=== PATIENT | male | born 1945 | race Hispanic/Latino ===

== ENCOUNTER 2017-11-01 01:29 | Inpatient (IN) | payer OTHER ==
[2017-11-01] VITALS (17 sets, daily range): BP systolic 79–161; BP diastolic 42–81
[~2017-11-01] VITALS: Ht 154.9 cm; Wt 73.3 kg
[~2017-11-01 01:29] MED LIST: ASPI-1005 PO; CLOP75TA32 PO; FURO40TA5 PO; HUM10VIA SQ; HYDR-4154 PO; LOSA100T29 PO; METO200T49 PO; SIMV40TA59 PO
[2017-11-01 02:45] LABS: BASOPHILS % (AUTO) 0.3 % (0.0-5.0); EOSINOPHILS % (AUTO) 0.8 % (0.0-8.0); HEMATOCRIT 22.3 % (42-54); LYMPHOCYTES % (AUTO) 10.8 % (21.0-51.0); MEAN CORPUSCULAR HGB CONC 33.3 g/dL (32.0-36.0); MONOCYTES % (AUTO) 8.9 % (3.0-13.0); NEUTROPHILS % (AUTO) 79.2 % (40.0-77.0); PLATELET COUNT (AUTO) 99 K/uL (130-400); RED CELL DISTRIBUTION WIDTH 14.3 % (11.0-15.5); WHITE BLOOD COUNT (AUTO) 10.7 K/uL (4.8-10.8)
[2017-11-01 02:46] LABS: CREATININE 3.8 mg/dL (0.5-1.5)
[2017-11-01 02:53] LABS: ALBUMIN 3.1 g/dL (3.5-5.0); BILIRUBIN,TOTAL 0.5 mg/dL (0.2-1.0)
[2017-11-01 02:57] LABS: APPEARANCE,URINE Cloudy (CLEAR); BILIRUBIN,URINE Negative (NEGATIVE); COLOR,URINE Yellow (YELLOW); GLUCOSE, URINE (UA) Negative (NEGATIVE); KETONES,URINE Negative (NEGATIVE); LEUKOCYTE ESTERASE ,URINE Large (NEGATIVE); NITRATE,URINE Negative (NEGATIVE); OCCULT BLOOD,URINE Negative (NEGATIVE); PROTEIN,URINE 300 (NEGATIVE)
[2017-11-01 03:15] LABS: BACTERIA,URINE Many /HPF (None Seen); RBC,URINE None Seen /HPF (0-1); SQUAMOUS EPITHELIAL CELL,UR Few /LPF (0-2); WBC,URINE 26-50 /HPF (0-1)
[2017-11-01] MEDS ORDERED: BISACODYL 10 MG SUPP.RECT RC ONE (04:29)
[2017-11-01] MEDS ORDERED: SODIUM CHLORIDE 0.9% 50 ML IV ONE (06:25)
[2017-11-01] MEDS ORDERED: CEFTRIAXONE SODIUM 1 GM ONE ×2 (06:25→09:03)
[2017-11-01] MEDS ORDERED: DEXTROSE 50%-WATER 50 ML DISP.SYRIN IV PRN (07:15)
[2017-11-01] MEDS ORDERED: LIDOCAINE HCL-MPF 1% 2ML VIAL IJ PRN (07:15)
[2017-11-01] MEDS ORDERED: CEFTRIAXONE SODIUM 1 GM IVP SCH (07:15)
[2017-11-01] MEDS ORDERED: GLUCAGON 1MG KIT 1 MG ML IM PRN (07:15)
[2017-11-01] MEDS ORDERED: POTASSIUM CHLORIDE 20MEQ/100ML 100 ML IV PRN (07:15)
[2017-11-01] MEDS ORDERED: ACETAMINOPHEN 325 MG TAB PO PRN ×2 (07:15)
[2017-11-01] MEDS ORDERED: DIPHENHYDRAMINE HCL 25 MG CAPSULE PO PRN (07:15)
[2017-11-01] MEDS ORDERED: POTASSIUM CHLORIDE 10% ELIXIR 20 MEQ/15 ML UDCUP PO PRN (07:15)
[2017-11-01] MEDS ORDERED: GUAIFENESIN-DM 200/20 MG 10 ML PO PRN (07:15)
[2017-11-01] MEDS ORDERED: MAG HYDROX/AL HYDROX/SIMETH ES 30 ML SUSP UDCUP PO PRN (07:15)
[2017-11-01] MEDS ORDERED: DiphenhydrAMINE HCL 50 MG/ML VIAL IVP PRN (07:15)
[2017-11-01] MEDS ORDERED: LACTULOSE 20 GM/30 ML UDCUP PO PRN (07:15)
[2017-11-01] MEDS ORDERED: GUAIFENESIN SUGAR-FREE 100 MG/5 ML UDCUP PO PRN (07:15)
[2017-11-01] MEDS ORDERED: POTASSIUM CHLORIDE 20 MEQ ERTAB PO PRN (07:15)
[2017-11-01] MEDS ORDERED: ZOLPIDEM TARTRATE 5 MG TAB PO PRN (07:15)
[2017-11-01] MEDS ORDERED: CLONIDINE HCL 0.1 MG TABLET PO PRN (07:15)
[2017-11-01] MEDS ORDERED: NITROGLYCERIN 0.4 MG SL TAB SL PRN (07:15)
[2017-11-01] MEDS: INSULIN R PO SSI SQ SCH ×2 (07:30→16:37)
[2017-11-01] MEDS ORDERED: PANTOPRAZOLE SODIUM 40 MG TABLET.DR PO SCH (09:00)
[2017-11-01] MEDS ORDERED: PANTOPRAZOLE SODIUM 40 MG TABLET.DR PO ONE (09:03)
[2017-11-01] MEDS ORDERED: SODIUM CHLORIDE 0.9% 1000ML 1,000 ML IV SCH (09:45)
[2017-11-01] MEDS ORDERED: COMPOUND IV MISC 1 EACH IVSOLN MISC PRN (10:00)
[2017-11-01] MEDS ORDERED: IRON SUCROSE COMPLEX 100 MG in SODIUM CHLORIDE 0.9% 50 ML IV SCH (10:00)
[2017-11-01] MEDS ORDERED: FOLI1TAB15 PO (10:13)
[2017-11-01] MEDS ORDERED: OXYB5TAB PO (10:13)
[2017-11-01] MEDS ORDERED: AMLO10TA2 PO (10:13)
[2017-11-01] MEDS ORDERED: INS7030 SQ (10:56)
[2017-11-01] MEDS ORDERED: SUCCINYLCHOLINE CHLORIDE 20 MG/ML 10 ML VIAL IVP ONE (12:00)
[2017-11-01] MEDS ORDERED: EPINEPHRINE 0.1 MG/ML 10 ML SYG IVP ONE (12:00)
[2017-11-01] MEDS ORDERED: ETOMIDATE 2 MG/ML 10 ML VIAL IVP ONE (12:00)
[2017-11-01] MEDS: EPOETIN ALFA 10,000 UNIT/ML VIAL SQ SCH (14:13)
[2017-11-01] MEDS ORDERED: SODIUM CHLORIDE 0.9% 250 ML IV ONE (15:45)
[2017-11-01] MEDS ORDERED: FUROSEMIDE 10 MG/ML 4ML VIAL IV SCH (18:00)
[2017-11-01] MEDS ORDERED: PROPOFOL 1000 MG/100 ML 100 ML IV ONE (18:06)
[2017-11-01 18:12] LABS: HEMATOCRIT 25.3 % (42-54); MEAN CORPUSCULAR HEMOGLOBIN 30.8 pg (27.0-33.0); MEAN CORPUSCULAR HGB CONC 32.6 g/dL (32.0-36.0); MEAN CORPUSCULAR VOLUME 94.6 fL (79-99); PLATELET COUNT (AUTO) 185 K/uL (130-400); RED BLOOD CELL COUNT(AUTO) 2.68 MIL/uL (4.50-6.20); RED CELL DISTRIBUTION WIDTH 14.3 % (11.0-15.5); WHITE BLOOD COUNT (AUTO) 18.2 K/uL (4.8-10.8)
[2017-11-01 18:20] LABS: CREATININE 4.3 mg/dL (0.5-1.5); POTASSIUM 3.6 mmol/L (3.5-5.1)
[2017-11-01] MEDS ORDERED: CEFEPIME 1GM+NS 50ML 50 ML IV SCH (18:30)
[2017-11-01] MEDS ORDERED: HYDRALAZINE HCL 20 MG/ML VIAL IV PRN (18:30)
[2017-11-01] MEDS ORDERED: PROPOFOL 1000 MG/100 ML IV PRN (18:45)
[2017-11-01] MEDS ORDERED: NOREPINEPHRINE 4MG/NS 250ML 250 ML IV SCH (19:30)
[2017-11-01] MEDS: IPRATROPIUM/ALBUTEROL SULFATE 3 ML SOLUTION IH SCH ×2 (19:51→22:38)
[2017-11-01 20:00] LABS: ABG BASE EXCESS -7.1 mmol/L (-2.0-3.0); ABG HCO3 17.8 mmol/L (21.0-28.0); ABG OXYGEN SATURATION 93.3 % (95.0-99.0); ABG PCO2 35 mmHg (35-48)
[2017-11-01] MEDS ORDERED: SODIUM BICARB 50MEQ 50ML VIAL IV SCH (20:22)
[2017-11-01] MEDS ORDERED: INSULIN HUMULIN R 100 UNIT/ML 3ML SQ SCH (21:00)
[2017-11-01] MEDS ORDERED: SODIUM BICARB 50MEQ 50ML VIAL ONE (21:04)
[2017-11-01] MEDS: MIDAZOLAM 100MG-0.9% NS 100ML 100 ML IV PRN (21:14)
[2017-11-01] MEDS: FENTANYL 2500MCG+NS 250ML 250 ML IV PRN (21:14)
[2017-11-01] MEDS: OSELTAMIVIR PHOSPHATE 75 MG CAP PO SCH (21:15)
[2017-11-01] MEDS: ARTIFICAL TEARS SOL 15 ML OU SCH (21:15)
[2017-11-01] MEDS: DOXYCYCLINE HYCLATE 100 MG TABLET PO SCH (21:15)
[2017-11-01] MEDS: FUROSEMIDE 10 MG/ML 4ML VIAL IV SCH (21:16)
[2017-11-01] MEDS: CEFEPIME HCL 1 GM VIAL IVP SCH (21:23)
[2017-11-01 21:56] LABS: APPEARANCE,URINE TURBID (CLEAR); BILIRUBIN,URINE SMALL (NEGATIVE); COLOR,URINE BROWN (YELLOW); GLUCOSE, URINE (UA) NEGATIVE (NEGATIVE); KETONES,URINE NEGATIVE (NEGATIVE); LEUKOCYTE ESTERASE ,URINE SMALL (NEGATIVE); NITRATE,URINE NEGATIVE (NEGATIVE); OCCULT BLOOD,URINE LARGE (NEGATIVE); PROTEIN,URINE >=300 (NEGATIVE)
[2017-11-01 22:06] LABS: BACTERIA,URINE Moderate /HPF (None Seen); RBC,URINE >100 /HPF (0-1)
[2017-11-01 22:07] LABS: SQUAMOUS EPITHELIAL CELL,UR Rare /LPF (0-2)
[2017-11-02] VITALS (25 sets, daily range): BP systolic 104–137; BP diastolic 42–68
[2017-11-02] MEDS: ARTIFICAL TEARS SOL 15 ML OU SCH ×4 (00:31→18:29)
[2017-11-02] MEDS ORDERED: INSULIN HUMULIN R 100 UNIT/ML 3ML ONE (00:33)
[2017-11-02] MEDS: IPRATROPIUM/ALBUTEROL SULFATE 3 ML SOLUTION IH SCH ×6 (02:11→22:46)
[2017-11-02 03:37] LABS: ABG BASE EXCESS 0.9 mmol/L (-2.0-3.0); ABG HCO3 24.4 mmol/L (21.0-28.0); ABG OXYGEN SATURATION 94.9 % (95.0-99.0); ABG PCO2 36 mmHg (35-48)
[2017-11-02 04:23] LABS: HEMATOCRIT 23.3 % (42-54); MEAN CORPUSCULAR HEMOGLOBIN 30.8 pg (27.0-33.0); MEAN CORPUSCULAR HGB CONC 33.5 g/dL (32.0-36.0); PLATELET COUNT (AUTO) 88 K/uL (130-400); RED BLOOD CELL COUNT(AUTO) 2.53 MIL/uL (4.50-6.20); RED CELL DISTRIBUTION WIDTH 14.2 % (11.0-15.5); WHITE BLOOD COUNT (AUTO) 12.9 K/uL (4.8-10.8)
[2017-11-02 04:35] LABS: BAND NEUTROPHILS % (MANUAL) 10 % (0-2); LYMPHOCYTES % (MANUAL) 7 % (22-44); MONOCYTES % (MANUAL) 2 % (2-9); REACTIVE LYMPHOCYTES 1 % (0-0); SEGMENTED NEUTROPHILS % 80 % (40-70)
[2017-11-02 04:36] LABS: MAN.DIFF COMMENT-IMPRESSION MANUAL DIF; PLATELET MORPHOLOGY COMMENT SLIGHTLY DECREASED
[2017-11-02 04:39] LABS: ALBUMIN 2.6 g/dL (3.5-5.0); BILIRUBIN,TOTAL 0.5 mg/dL (0.2-1.0); CREATININE 4.3 mg/dL (0.5-1.5); PHOSPHORUS 5.5 mg/dL (2.5-4.9); POTASSIUM 3.4 mmol/L (3.5-5.1); THYROID STIMULATING HORMONE 2.39 uIU/mL (0.36-3.74); TOTAL PROTEIN, SERUM 6.7 g/dL (6.0-8.3)
[2017-11-02] MEDS: INSULIN HUMULIN R 100 UNIT/ML 3ML SQ SCH ×3 (06:34→18:00)
[2017-11-02] MEDS: FUROSEMIDE 10 MG/ML 4ML VIAL IV SCH (08:29)
[2017-11-02] MEDS: FAMOTIDINE 20MG TAB 20 MG TAB PO SCH (08:29)
[2017-11-02] MEDS: OSELTAMIVIR PHOSPHATE 75 MG CAP PO SCH (08:29)
[2017-11-02] MEDS: TAMSULOSIN HCL 0.4 MG CAP.ER.24H PO SCH (08:30)
[2017-11-02] MEDS: EPOETIN ALFA 10,000 UNIT/ML VIAL SQ SCH (08:31)
[2017-11-02] MEDS: DOXYCYCLINE HYCLATE 100 MG TABLET PO SCH ×2 (08:42→19:43)
[2017-11-02] MEDS ORDERED: METOLAZONE 2.5 MG TABLET PO SCH (17:30)
[2017-11-02] MEDS: FUROSEMIDE 100 MG in SODIUM CHLORIDE 0.9% 90 ML IV SCH (18:28)
[2017-11-02] MEDS: CEFEPIME HCL 1 GM VIAL IVP SCH (18:29)
[2017-11-02] MEDS: HEPARIN SODIUM 5000UNIT/ML 1ML VIAL SQ SCH (18:35)
[2017-11-02] MEDS: MIDAZOLAM 100MG-0.9% NS 100ML 100 ML IV PRN (22:01)
[2017-11-03] VITALS (23 sets, daily range): BP systolic 95–125; BP diastolic 39–57
[2017-11-03] MEDS: INSULIN HUMULIN R 100 UNIT/ML 3ML SQ SCH ×4 (00:41→18:14)
[2017-11-03] MEDS: ARTIFICAL TEARS SOL 15 ML OU SCH ×5 (01:03→23:40)
[2017-11-03] MEDS: FENTANYL 2500MCG+NS 250ML 250 ML IV PRN (01:40)
[2017-11-03] MEDS: IPRATROPIUM/ALBUTEROL SULFATE 3 ML SOLUTION IH SCH ×6 (02:37→22:38)
[2017-11-03 03:36] LABS: ABG BASE EXCESS 2.8 mmol/L (-2.0-3.0); ABG HCO3 26.4 mmol/L (21.0-28.0); ABG OXYGEN SATURATION 99.4 % (95.0-99.0); ABG PCO2 37 mmHg (35-48)
[2017-11-03] MEDS: FUROSEMIDE 100 MG in SODIUM CHLORIDE 0.9% 90 ML IV SCH ×2 (03:43→14:40)
[2017-11-03 04:07] LABS: MEAN CORPUSCULAR HEMOGLOBIN 32.3 pg (27.0-33.0); MEAN CORPUSCULAR HGB CONC 34.8 g/dL (32.0-36.0); MEAN CORPUSCULAR VOLUME 92.9 fL (79-99); NUCLEATED RED BLOOD CELLS 0.1 % (0.0-0.19); PLATELET COUNT (AUTO) 67 K/uL (130-400); RED BLOOD CELL COUNT(AUTO) 2.23 MIL/uL (4.50-6.20); RED CELL DISTRIBUTION WIDTH 14.2 % (11.0-15.5); WHITE BLOOD COUNT (AUTO) 6.7 K/uL (4.8-10.8)
[2017-11-03 04:10] LABS: HEMATOCRIT 20.7 % (42-54)
[2017-11-03 04:16] LABS: INR 1.02 (0.85-1.15); PARTIAL THROMBOPLASTIN TIME 35.5 SEC (26.3-35.5); PROTHROMBIN TIME 10.7 SEC (9.6-11.6)
[2017-11-03 04:22] LABS: CREATININE 4.3 mg/dL (0.5-1.5); MAGNESIUM 1.9 mg/dL (1.80-2.40); PHOSPHORUS 4.6 mg/dL (2.5-4.9); POTASSIUM 3.1 mmol/L (3.5-5.1)
[2017-11-03] MEDS: HEPARIN SODIUM 5000UNIT/ML 1ML VIAL SQ SCH ×2 (05:18→17:23)
[2017-11-03] MEDS: TAMSULOSIN HCL 0.4 MG CAP.ER.24H PO SCH (08:27)
[2017-11-03] MEDS: FAMOTIDINE 20MG TAB 20 MG TAB PO SCH (08:27)
[2017-11-03] MEDS: OSELTAMIVIR PHOSPHATE 75 MG CAP PO SCH (08:27)
[2017-11-03] MEDS ORDERED: POTASSIUM CHLORIDE 20 MEQ/100 ML BAG IV SCH (09:00)
[2017-11-03] MEDS: DOXYCYCLINE 100MG+NS 250ML 250 ML IV SCH ×2 (11:01→20:44)
[2017-11-03] MEDS: POTASSIUM CHLORIDE 20MEQ/100ML 100 ML IV SCH (11:02)
[2017-11-03] MEDS: CEFEPIME HCL 1 GM VIAL IVP SCH (18:15)
[2017-11-04] VITALS (33 sets, daily range): BP systolic 89–134; BP diastolic 42–65
[2017-11-04] MEDS: INSULIN HUMULIN R 100 UNIT/ML 3ML SQ SCH ×5 (00:11→23:36)
[2017-11-04] MEDS: FUROSEMIDE 100 MG in SODIUM CHLORIDE 0.9% 90 ML IV SCH (00:12)
[2017-11-04] MEDS: IPRATROPIUM/ALBUTEROL SULFATE 3 ML SOLUTION IH SCH ×6 (02:28→22:21)
[2017-11-04 04:02] LABS: BASOPHILS % (AUTO) 0.3 % (0.0-5.0); EOSINOPHILS % (AUTO) 0.9 % (0.0-8.0); LYMPHOCYTES % (AUTO) 8.3 % (21.0-51.0); MEAN CORPUSCULAR HEMOGLOBIN 31.2 pg (27.0-33.0); MEAN CORPUSCULAR HGB CONC 33.7 g/dL (32.0-36.0); MEAN CORPUSCULAR VOLUME 92.5 fL (79-99); MONOCYTES % (AUTO) 14.3 % (3.0-13.0); NEUTROPHILS % (AUTO) 76.2 % (40.0-77.0); NUCLEATED RED BLOOD CELLS 0.2 % (0.0-0.19); PLATELET COUNT (AUTO) 63 K/uL (130-400); RED BLOOD CELL COUNT(AUTO) 2.08 MIL/uL (4.50-6.20); RED CELL DISTRIBUTION WIDTH 13.9 % (11.0-15.5); WHITE BLOOD COUNT (AUTO) 4.7 K/uL (4.8-10.8)
[2017-11-04 04:08] LABS: HEMATOCRIT 19.3 % (42-54)
[2017-11-04 04:19] LABS: BILIRUBIN,TOTAL 0.9 mg/dL (0.2-1.0); CREATININE 4.6 mg/dL (0.5-1.5); POTASSIUM 3.4 mmol/L (3.5-5.1)
[2017-11-04] MEDS: HEPARIN SODIUM 5000UNIT/ML 1ML VIAL SQ SCH (05:43)
[2017-11-04] MEDS: ARTIFICAL TEARS SOL 15 ML OU SCH ×3 (06:13→20:15)
[2017-11-04 07:46] LABS: MAGNESIUM 1.8 mg/dL (1.80-2.40); PHOSPHORUS 4.1 mg/dL (2.5-4.9)
[2017-11-04] MEDS: POTASSIUM CHLORIDE 20MEQ/100ML 100 ML IV SCH (09:15)
[2017-11-04 10:07] LABS: INR 1.02 (0.85-1.15); PARTIAL THROMBOPLASTIN TIME 40.4 SEC (26.3-35.5); PROTHROMBIN TIME 10.7 SEC (9.6-11.6)
[2017-11-04] MEDS: OSELTAMIVIR PHOSPHATE 75 MG CAP PO SCH (10:36)
[2017-11-04] MEDS: FAMOTIDINE 20MG TAB 20 MG TAB PO SCH (10:36)
[2017-11-04] MEDS: DOXYCYCLINE 100MG+NS 250ML 250 ML IV SCH ×2 (10:36→21:17)
[2017-11-04] MEDS: TAMSULOSIN HCL 0.4 MG CAP.ER.24H PO SCH (10:36)
[2017-11-04] MEDS ORDERED: 0.9% SODIUM CHLORIDE 250 ML IV BAG IV PRN (13:00)
[2017-11-04] MEDS ORDERED: HEPARIN SODIUM 5000UNIT/ML 1ML VIAL IJ PRN (13:00)
[2017-11-04] MEDS ORDERED: SODIUM CHLORIDE 0.9% 1000ML 1,000 ML IV PRN (13:00)
[2017-11-04] MEDS ORDERED: ALBUMIN (HUMAN) 25% 100 ML IV PRN (13:00)
[2017-11-04 13:06] LABS: HEMATOCRIT 18.9 % (42-54)
[2017-11-04 13:20] LABS: ALBUMIN 2.1 g/dL (3.5-5.0)
[2017-11-04 13:23] LABS: % IRON SATURATION 8.2 % (30-44)
[2017-11-04 13:29] LABS: HEMOGLOBIN A1C 9.3 % (4.0-6.0)
[2017-11-04] MEDS: MIDAZOLAM 100MG-0.9% NS 100ML 100 ML IV PRN (15:42)
[2017-11-04] MEDS: CEFEPIME HCL 1 GM VIAL IVP SCH (18:25)
[2017-11-04] MEDS: FENTANYL 2500MCG+NS 250ML 250 ML IV PRN (19:00)
[2017-11-05] VITALS (24 sets, daily range): BP systolic 96–147; BP diastolic 35–78
[2017-11-05] MEDS: ARTIFICAL TEARS SOL 15 ML OU SCH ×4 (00:35→19:14)
[2017-11-05] MEDS: IPRATROPIUM/ALBUTEROL SULFATE 3 ML SOLUTION IH SCH ×6 (02:07→22:02)
[2017-11-05 03:48] LABS: MEAN CORPUSCULAR HEMOGLOBIN 32.1 pg (27.0-33.0); MEAN CORPUSCULAR HGB CONC 34.5 g/dL (32.0-36.0); MEAN CORPUSCULAR VOLUME 92.8 fL (79-99); NUCLEATED RED BLOOD CELLS 0.1 % (0.0-0.19); PLATELET COUNT (AUTO) 108 K/uL (130-400); RED BLOOD CELL COUNT(AUTO) 2.22 MIL/uL (4.50-6.20); RED CELL DISTRIBUTION WIDTH 14.4 % (11.0-15.5); WHITE BLOOD COUNT (AUTO) 2.6 K/uL (4.8-10.8)
[2017-11-05 03:53] LABS: HEMATOCRIT 20.6 % (42-54)
[2017-11-05 04:09] LABS: CREATININE 4.2 mg/dL (0.5-1.5); MAGNESIUM 1.9 mg/dL (1.80-2.40); PHOSPHORUS 4.2 mg/dL (2.5-4.9)
[2017-11-05 04:11] LABS: POTASSIUM 2.6 mmol/L (3.5-5.1)
[2017-11-05] MEDS ORDERED: POTASSIUM CHLORIDE 20MEQ/100ML 100 ML IV ONE (04:15)
[2017-11-05] MEDS: MIDAZOLAM 100MG-0.9% NS 100ML 100 ML IV PRN (04:33)
[2017-11-05 05:13] LABS: BAND NEUTROPHILS % (MANUAL) 26 % (0-2); BASOPHILS % (MANUAL) 1 % (0-2); EOSINOPHILS % (MANUAL) 8 % (1-6); LYMPHOCYTES % (MANUAL) 11 % (22-44); MAN.DIFF COMMENT-IMPRESSION MANUAL DIFFERENTIAL; METAMYELOCYTES % 3 % (0-0); MONOCYTES % (MANUAL) 8 % (2-9); SEGMENTED NEUTROPHILS % 43 % (40-70)
[2017-11-05] MEDS: INSULIN HUMULIN R 100 UNIT/ML 3ML SQ SCH ×3 (05:21→19:12)
[2017-11-05 06:15] LABS: ABG BASE EXCESS 3.5 mmol/L (-2.0-3.0); ABG HCO3 26.4 mmol/L (21.0-28.0); ABG OXYGEN SATURATION 98.9 % (95.0-99.0); ABG PCO2 35 mmHg (35-48)
[2017-11-05 07:26] LABS: HEPATITIS Bs ANTIGEN SCREEN P Negative (Negative)
[2017-11-05] MEDS: TAMSULOSIN HCL 0.4 MG CAP.ER.24H PO SCH (09:41)
[2017-11-05] MEDS: FAMOTIDINE 20MG TAB 20 MG TAB PO SCH (09:41)
[2017-11-05] MEDS: OSELTAMIVIR PHOSPHATE 75 MG CAP PO SCH (09:41)
[2017-11-05] MEDS: DOXYCYCLINE 100MG+NS 250ML 250 ML IV SCH ×2 (09:41→21:18)
[2017-11-05] MEDS: CEFEPIME HCL 1 GM VIAL IVP SCH (19:14)
[2017-11-06] VITALS (24 sets, daily range): BP systolic 107–153; BP diastolic 53–98
[2017-11-06] MEDS: ARTIFICAL TEARS SOL 15 ML OU SCH ×4 (00:12→17:23)
[2017-11-06] MEDS: IPRATROPIUM/ALBUTEROL SULFATE 3 ML SOLUTION IH SCH ×7 (00:13→22:15)
[2017-11-06] MEDS: INSULIN HUMULIN R 100 UNIT/ML 3ML SQ SCH ×4 (00:16→17:44)
[2017-11-06 04:00] LABS: BASOPHILS % (AUTO) 0.2 % (0.0-5.0); EOSINOPHILS % (AUTO) 3.9 % (0.0-8.0); HEMATOCRIT 27.7 % (42-54); LYMPHOCYTES % (AUTO) 8.1 % (21.0-51.0); MEAN CORPUSCULAR HEMOGLOBIN 29.9 pg (27.0-33.0); MEAN CORPUSCULAR HGB CONC 34.1 g/dL (32.0-36.0); MEAN CORPUSCULAR VOLUME 87.7 fL (79-99); NEUTROPHILS % (AUTO) 78.8 % (40.0-77.0); NUCLEATED RED BLOOD CELLS 0.2 % (0.0-0.19); PLATELET COUNT (AUTO) 49 K/uL (130-400); RED BLOOD CELL COUNT(AUTO) 3.15 MIL/uL (4.50-6.20); RED CELL DISTRIBUTION WIDTH 17.1 % (11.0-15.5); WHITE BLOOD COUNT (AUTO) 5.8 K/uL (4.8-10.8)
[2017-11-06 04:12] LABS: POTASSIUM 2.8 mmol/L (3.5-5.1)
[2017-11-06] MEDS: DOXYCYCLINE 100MG+NS 250ML 250 ML IV SCH ×2 (08:15→21:32)
[2017-11-06] MEDS: OSELTAMIVIR PHOSPHATE 75 MG CAP PO SCH (08:15)
[2017-11-06] MEDS: TAMSULOSIN HCL 0.4 MG CAP.ER.24H PO SCH (08:15)
[2017-11-06] MEDS: FAMOTIDINE 20MG TAB 20 MG TAB PO SCH (08:15)
[2017-11-06] MEDS ORDERED: POTASSIUM CHLORIDE 20MEQ/100ML 100 ML IV ONE (09:30)
[2017-11-06] MEDS: CEFEPIME HCL 1 GM VIAL IVP SCH (17:22)
[2017-11-06] MEDS: PROPOFOL 1000 MG/100 ML IV PRN (21:33)
[2017-11-07] VITALS (24 sets, daily range): BP systolic 106–162; BP diastolic 43–73
[2017-11-07] MEDS: INSULIN HUMULIN R 100 UNIT/ML 3ML SQ SCH ×4 (00:10→17:58)
[2017-11-07] MEDS: ARTIFICAL TEARS SOL 15 ML OU SCH ×5 (00:11→23:55)
[2017-11-07] MEDS: IPRATROPIUM/ALBUTEROL SULFATE 3 ML SOLUTION IH SCH ×6 (02:36→22:27)
[2017-11-07 04:24] LABS: BASOPHILS % (AUTO) 0.8 % (0.0-5.0); EOSINOPHILS % (AUTO) 2.6 % (0.0-8.0); HEMATOCRIT 26.2 % (42-54); LYMPHOCYTES % (AUTO) 12.3 % (21.0-51.0); MEAN CORPUSCULAR HEMOGLOBIN 31.4 pg (27.0-33.0); MEAN CORPUSCULAR HGB CONC 34.9 g/dL (32.0-36.0); MEAN CORPUSCULAR VOLUME 89.8 fL (79-99); MONOCYTES % (AUTO) 9.5 % (3.0-13.0); NEUTROPHILS % (AUTO) 74.8 % (40.0-77.0); NUCLEATED RED BLOOD CELLS 0.5 % (0.0-0.19); PLATELET COUNT (AUTO) 20 K/uL (130-400); RED BLOOD CELL COUNT(AUTO) 2.91 MIL/uL (4.50-6.20); RED CELL DISTRIBUTION WIDTH 17.1 % (11.0-15.5); WHITE BLOOD COUNT (AUTO) 10.2 K/uL (4.8-10.8)
[2017-11-07 04:38] LABS: ALBUMIN 1.9 g/dL (3.5-5.0); BILIRUBIN,TOTAL 0.7 mg/dL (0.2-1.0); CREATININE 2.9 mg/dL (0.5-1.5); TOTAL PROTEIN, SERUM 6.3 g/dL (6.0-8.3)
[2017-11-07 05:02] LABS: POTASSIUM 2.7 mmol/L (3.5-5.1)
[2017-11-07] MEDS: FAMOTIDINE 20MG TAB 20 MG TAB PO SCH (09:39)
[2017-11-07] MEDS: TAMSULOSIN HCL 0.4 MG CAP.ER.24H PO SCH (09:39)
[2017-11-07] MEDS: DOXYCYCLINE 100MG+NS 250ML 250 ML IV SCH ×2 (09:39→20:37)
[2017-11-07] MEDS ORDERED: POTASSIUM CHLORIDE 10% ELIXIR 20 MEQ/15 ML UDCUP PO SCH (10:00)
[2017-11-07] MEDS: PROPOFOL 1000 MG/100 ML IV PRN (17:52)
[2017-11-07] MEDS: CEFEPIME HCL 1 GM VIAL IVP SCH (17:56)
[2017-11-08] VITALS (24 sets, daily range): BP systolic 103–149; BP diastolic 43–78
[2017-11-08] MEDS: INSULIN HUMULIN R 100 UNIT/ML 3ML SQ SCH ×4 (00:50→18:32)
[2017-11-08] MEDS: PROPOFOL 1000 MG/100 ML IV PRN ×2 (01:15→05:41)
[2017-11-08] MEDS: IPRATROPIUM/ALBUTEROL SULFATE 3 ML SOLUTION IH SCH ×6 (02:18→21:53)
[2017-11-08 04:35] LABS: BASOPHILS % (AUTO) 0.3 % (0.0-5.0); EOSINOPHILS % (AUTO) 2.5 % (0.0-8.0); HEMATOCRIT 27.2 % (42-54); LYMPHOCYTES % (AUTO) 10.1 % (21.0-51.0); MEAN CORPUSCULAR HEMOGLOBIN 30.3 pg (27.0-33.0); MEAN CORPUSCULAR HGB CONC 33.8 g/dL (32.0-36.0); MEAN CORPUSCULAR VOLUME 89.6 fL (79-99); MONOCYTES % (AUTO) 9.3 % (3.0-13.0); NEUTROPHILS % (AUTO) 77.8 % (40.0-77.0); PLATELET COUNT (AUTO) 45 K/uL (130-400); RED BLOOD CELL COUNT(AUTO) 3.04 MIL/uL (4.50-6.20); WHITE BLOOD COUNT (AUTO) 12.1 K/uL (4.8-10.8)
[2017-11-08 04:38] LABS: ALBUMIN 1.9 g/dL (3.5-5.0); BILIRUBIN,TOTAL 0.7 mg/dL (0.2-1.0); CREATININE 3.7 mg/dL (0.5-1.5); TOTAL PROTEIN, SERUM 6.2 g/dL (6.0-8.3)
[2017-11-08] MEDS: ARTIFICAL TEARS SOL 15 ML OU SCH ×4 (05:38→23:41)
[2017-11-08] MEDS ORDERED: HEPARIN SODIUM 5000UNIT/ML 1ML VIAL IJ PRN ×2 (06:15)
[2017-11-08] MEDS ORDERED: ALBUMIN (HUMAN) 25% 100 ML IV PRN (06:15)
[2017-11-08] MEDS ORDERED: 0.9% SODIUM CHLORIDE 250 ML IV BAG IV PRN (06:15)
[2017-11-08] MEDS ORDERED: SODIUM CHLORIDE 0.9% 1000ML 1,000 ML IV PRN (06:15)
[2017-11-08] MEDS: WATER FOR INJECTION,STERILE 5 ML VIAL INJ SCH (08:59)
[2017-11-08] MEDS: TAMSULOSIN HCL 0.4 MG CAP.ER.24H PO SCH (08:59)
[2017-11-08] MEDS: FAMOTIDINE 20MG TAB 20 MG TAB PO SCH (08:59)
[2017-11-08] MEDS: DOXYCYCLINE 100MG+NS 250ML 250 ML IV SCH ×2 (08:59→20:38)
[2017-11-08] MEDS ORDERED: LIDOCAINE HCL 1% 20 ML VIAL ONE (13:34)
[2017-11-08 17:28] LABS: ABG BASE EXCESS 6.1 mmol/L (-2.0-3.0); ABG OXYGEN SATURATION 98.7 % (95.0-99.0); ABG PCO2 45 mmHg (35-48)
[2017-11-08] MEDS: CEFEPIME HCL 1 GM VIAL IVP SCH (18:48)
[2017-11-09] VITALS (37 sets, daily range): BP systolic 94–172; BP diastolic 49–86
[2017-11-09] MEDS: INSULIN HUMULIN R 100 UNIT/ML 3ML SQ SCH ×4 (00:01→18:41)
[2017-11-09] MEDS: IPRATROPIUM/ALBUTEROL SULFATE 3 ML SOLUTION IH SCH ×7 (02:39→23:54)
[2017-11-09 04:07] LABS: MEAN CORPUSCULAR HEMOGLOBIN 29.8 pg (27.0-33.0); MEAN CORPUSCULAR VOLUME 90.3 fL (79-99); PLATELET COUNT (AUTO) 60 K/uL (130-400); RED BLOOD CELL COUNT(AUTO) 3.32 MIL/uL (4.50-6.20); RED CELL DISTRIBUTION WIDTH 17.2 % (11.0-15.5); WHITE BLOOD COUNT (AUTO) 10.2 K/uL (4.8-10.8)
[2017-11-09 04:10] LABS: CREATININE 3.6 mg/dL (0.5-1.5); MAGNESIUM 1.9 mg/dL (1.80-2.40); PHOSPHORUS 2.9 mg/dL (2.5-4.9); POTASSIUM 3.1 mmol/L (3.5-5.1)
[2017-11-09 04:37] LABS: BAND NEUTROPHILS % (MANUAL) 6 % (0-2); LYMPHOCYTES % (MANUAL) 9 % (22-44); MAN.DIFF COMMENT-IMPRESSION MANUAL DIFFERENTIAL; MONOCYTES % (MANUAL) 13 % (2-9); SEGMENTED NEUTROPHILS % 72 % (40-70)
[2017-11-09] MEDS: ARTIFICAL TEARS SOL 15 ML OU SCH ×4 (05:35→23:29)
[2017-11-09] MEDS: WATER FOR INJECTION,STERILE 5 ML VIAL INJ SCH ×2 (07:42→18:39)
[2017-11-09] MEDS: TAMSULOSIN HCL 0.4 MG CAP.ER.24H PO SCH (09:21)
[2017-11-09] MEDS: FAMOTIDINE 20MG TAB 20 MG TAB PO SCH (09:22)
[2017-11-09] MEDS: DOXYCYCLINE 100MG+NS 250ML 250 ML IV SCH ×2 (09:22→19:56)
[2017-11-09 10:47] LABS: ABG HCO3 29.3 mmol/L (21.0-28.0); ABG OXYGEN SATURATION 98.2 % (95.0-99.0); ABG PCO2 47 mmHg (35-48)
[2017-11-09] MEDS ORDERED: RACEPINEPHRINE HCL 2.25% 0.5 ML NEB SOLN ONE (11:54)
[2017-11-09 12:25] LABS: ABG BASE EXCESS -1.1 mmol/L (-2.0-3.0); ABG HCO3 31.9 mmol/L (21.0-28.0); ABG OXYGEN SATURATION 92.7 % (95.0-99.0); ABG PCO2 103 mmHg (35-48)
[2017-11-09] MEDS: PROPOFOL 1000 MG/100 ML IV PRN ×3 (15:47→23:29)
[2017-11-09 17:13] LABS: ABG BASE EXCESS 1.6 mmol/L (-2.0-3.0); ABG HCO3 25.1 mmol/L (21.0-28.0); ABG OXYGEN SATURATION 99.7 % (95.0-99.0); ABG PCO2 36 mmHg (35-48)
[2017-11-09] MEDS: CEFEPIME HCL 1 GM VIAL IVP SCH (18:38)
[2017-11-09] MEDS: DEXAMETHASONE SOD PHOSPHATE 4 MG/ML 1ML VIAL IVP SCH (18:39)
[2017-11-09] MEDS ORDERED: INSULIN HUMULIN R 100 UNIT/ML 3ML SQ SCH (20:00)
[2017-11-10] VITALS (30 sets, daily range): BP systolic 110–154; BP diastolic 53–72
[2017-11-10] MEDS: INSULIN HUMULIN R 100 UNIT/ML 3ML SQ SCH ×2 (00:01→05:15)
[2017-11-10] MEDS: DEXAMETHASONE SOD PHOSPHATE 4 MG/ML 1ML VIAL IVP SCH ×3 (01:45→17:34)
[2017-11-10] MEDS: IPRATROPIUM/ALBUTEROL SULFATE 3 ML SOLUTION IH SCH ×6 (02:44→22:13)
[2017-11-10] MEDS: PROPOFOL 1000 MG/100 ML IV PRN ×5 (03:21→20:49)
[2017-11-10 04:18] LABS: BASOPHILS % (AUTO) 0.6 % (0.0-5.0); EOSINOPHILS % (AUTO) 0.2 % (0.0-8.0); HEMATOCRIT 29.3 % (42-54); LYMPHOCYTES % (AUTO) 7.5 % (21.0-51.0); MEAN CORPUSCULAR HEMOGLOBIN 30.8 pg (27.0-33.0); MEAN CORPUSCULAR HGB CONC 34.2 g/dL (32.0-36.0); MEAN CORPUSCULAR VOLUME 90.3 fL (79-99); MONOCYTES % (AUTO) 3.3 % (3.0-13.0); NEUTROPHILS % (AUTO) 88.4 % (40.0-77.0); PLATELET COUNT (AUTO) 25 K/uL (130-400); RED BLOOD CELL COUNT(AUTO) 3.24 MIL/uL (4.50-6.20); WHITE BLOOD COUNT (AUTO) 9.4 K/uL (4.8-10.8)
[2017-11-10 05:06] LABS: ALBUMIN 2.1 g/dL (3.5-5.0); BILIRUBIN,TOTAL 0.7 mg/dL (0.2-1.0); CREATININE 4.3 mg/dL (0.5-1.5); POTASSIUM 3.8 mmol/L (3.5-5.1); TOTAL PROTEIN, SERUM 6.9 g/dL (6.0-8.3)
[2017-11-10] MEDS: ARTIFICAL TEARS SOL 15 ML OU SCH ×4 (05:16→23:12)
[2017-11-10] MEDS ORDERED: INSULIN REGULAR, HUMAN 3ML 100 UNIT in SODIUM CHLORIDE 0.9% 99 ML IV PRN ×2 (08:30)
[2017-11-10] MEDS ORDERED: ALTEPLASE 2 MG/2 ML IVCATH SCH (08:30)
[2017-11-10] MEDS: FAMOTIDINE 20MG TAB 20 MG TAB PO SCH (09:46)
[2017-11-10] MEDS: TAMSULOSIN HCL 0.4 MG CAP.ER.24H PO SCH (09:46)
[2017-11-10] MEDS: DOXYCYCLINE 100MG+NS 250ML 250 ML IV SCH ×2 (09:46→20:43)
[2017-11-10] MEDS: CEFEPIME HCL 1 GM VIAL IVP SCH (17:34)
[2017-11-10] MEDS: INSULIN REGULAR, HUMAN 3ML 100 UNIT in SODIUM CHLORIDE 0.9% 99 ML IV PRN ×2 (18:27)
[2017-11-11] VITALS (24 sets, daily range): BP systolic 121–173; BP diastolic 45–82
[2017-11-11] MEDS: PROPOFOL 1000 MG/100 ML IV PRN ×6 (00:14→22:07)
[2017-11-11] MEDS: IPRATROPIUM/ALBUTEROL SULFATE 3 ML SOLUTION IH SCH ×6 (02:22→21:46)
[2017-11-11] MEDS: DEXAMETHASONE SOD PHOSPHATE 4 MG/ML 1ML VIAL IVP SCH ×3 (02:54→17:30)
[2017-11-11 03:49] LABS: HEMATOCRIT 28.7 % (42-54); MEAN CORPUSCULAR HEMOGLOBIN 30.1 pg (27.0-33.0); MEAN CORPUSCULAR HGB CONC 33.7 g/dL (32.0-36.0); MEAN CORPUSCULAR VOLUME 89.3 fL (79-99); NUCLEATED RED BLOOD CELLS 0.1 % (0.0-0.19); PLATELET COUNT (AUTO) 66 K/uL (130-400); RED BLOOD CELL COUNT(AUTO) 3.21 MIL/uL (4.50-6.20); RED CELL DISTRIBUTION WIDTH 16.6 % (11.0-15.5); WHITE BLOOD COUNT (AUTO) 13.8 K/uL (4.8-10.8)
[2017-11-11 04:41] LABS: BAND NEUTROPHILS % (MANUAL) 5 % (0-2); LYMPHOCYTES % (MANUAL) 14 % (22-44); MAN.DIFF COMMENT-IMPRESSION MANUAL DIFFERENTIAL; METAMYELOCYTES % 2 % (0-0); MONOCYTES % (MANUAL) 7 % (2-9); SEGMENTED NEUTROPHILS % 72 % (40-70)
[2017-11-11 04:44] LABS: ALBUMIN 2.1 g/dL (3.5-5.0); BILIRUBIN,TOTAL 0.5 mg/dL (0.2-1.0); CREATININE 4.9 mg/dL (0.5-1.5); POTASSIUM 3.9 mmol/L (3.5-5.1); TOTAL PROTEIN, SERUM 6.8 g/dL (6.0-8.3)
[2017-11-11] MEDS: WATER FOR INJECTION,STERILE 5 ML VIAL INJ SCH (07:42)
[2017-11-11] MEDS: ARTIFICAL TEARS SOL 15 ML OU SCH ×4 (07:46→23:32)
[2017-11-11 08:19] LABS: INR 0.94 (0.85-1.15); PROTHROMBIN TIME 9.9 SEC (9.6-11.6)
[2017-11-11] MEDS: TAMSULOSIN HCL 0.4 MG CAP.ER.24H PO SCH (08:26)
[2017-11-11] MEDS: DOXYCYCLINE 100MG+NS 250ML 250 ML IV SCH ×2 (08:26→21:07)
[2017-11-11] MEDS: FAMOTIDINE 20MG TAB 20 MG TAB PO SCH (08:26)
[2017-11-11] MEDS: INSULIN REGULAR, HUMAN 3ML 100 UNIT in SODIUM CHLORIDE 0.9% 99 ML IV PRN ×2 (11:30)
[2017-11-11] MEDS ORDERED: HEPARIN SODIUM 5000UNIT/ML 1ML VIAL ONE (18:14)
[2017-11-11] MEDS: CEFEPIME HCL 1 GM VIAL IVP SCH (18:23)
[2017-11-12] VITALS (24 sets, daily range): BP systolic 87–177; BP diastolic 39–63
[2017-11-12] MEDS: PROPOFOL 1000 MG/100 ML IV PRN ×5 (02:00→17:57)
[2017-11-12] MEDS: DEXAMETHASONE SOD PHOSPHATE 4 MG/ML 1ML VIAL IVP SCH ×3 (02:00→17:57)
[2017-11-12] MEDS: IPRATROPIUM/ALBUTEROL SULFATE 3 ML SOLUTION IH SCH ×6 (02:08→21:22)
[2017-11-12 04:08] LABS: BASOPHILS % (AUTO) 0.3 % (0.0-5.0); EOSINOPHILS % (AUTO) 0.3 % (0.0-8.0); HEMATOCRIT 28.1 % (42-54); LYMPHOCYTES % (AUTO) 11.8 % (21.0-51.0); MEAN CORPUSCULAR HEMOGLOBIN 29.9 pg (27.0-33.0); MEAN CORPUSCULAR HGB CONC 33.8 g/dL (32.0-36.0); MEAN CORPUSCULAR VOLUME 88.5 fL (79-99); MONOCYTES % (AUTO) 7.9 % (3.0-13.0); NEUTROPHILS % (AUTO) 79.7 % (40.0-77.0); NUCLEATED RED BLOOD CELLS 0.1 % (0.0-0.19); PLATELET COUNT (AUTO) 59 K/uL (130-400); RED BLOOD CELL COUNT(AUTO) 3.17 MIL/uL (4.50-6.20); RED CELL DISTRIBUTION WIDTH 16.8 % (11.0-15.5); WHITE BLOOD COUNT (AUTO) 12.3 K/uL (4.8-10.8)
[2017-11-12 04:42] LABS: ALBUMIN 2.5 g/dL (3.5-5.0); BILIRUBIN,TOTAL 0.5 mg/dL (0.2-1.0); CREATININE 3.2 mg/dL (0.5-1.5); POTASSIUM 3.3 mmol/L (3.5-5.1); TOTAL PROTEIN, SERUM 6.8 g/dL (6.0-8.3)
[2017-11-12] MEDS: WATER FOR INJECTION,STERILE 5 ML VIAL INJ SCH (05:40)
[2017-11-12] MEDS: ARTIFICAL TEARS SOL 15 ML OU SCH ×4 (05:40→23:34)
[2017-11-12] MEDS ORDERED: HEPARIN SODIUM 5000UNIT/ML 1ML VIAL IJ PRN ×2 (08:15)
[2017-11-12] MEDS: DOXYCYCLINE 100MG+NS 250ML 250 ML IV SCH ×2 (08:43→20:26)
[2017-11-12] MEDS: FAMOTIDINE 20MG TAB 20 MG TAB PO SCH (08:43)
[2017-11-12] MEDS: TAMSULOSIN HCL 0.4 MG CAP.ER.24H PO SCH (08:43)
[2017-11-12] MEDS: CEFEPIME HCL 1 GM VIAL IVP SCH (17:58)
[2017-11-12] MEDS: INSULIN DETEMIR 10ML 100 UNIT/ML 10ML SQ SCH (20:28)
[2017-11-12] MEDS ORDERED: INSULIN HUMULIN R 100 UNIT/ML 3ML SQ SCH (21:00)
[2017-11-12] MEDS: INSULIN HUMULIN R 100 UNIT/ML 3ML SQ SCH (23:51)
[2017-11-13] VITALS (22 sets, daily range): BP systolic 92–180; BP diastolic 30–113
[2017-11-13] MEDS: IPRATROPIUM/ALBUTEROL SULFATE 3 ML SOLUTION IH SCH ×6 (01:42→21:52)
[2017-11-13] MEDS: DEXAMETHASONE SOD PHOSPHATE 4 MG/ML 1ML VIAL IVP SCH ×3 (01:55→17:45)
[2017-11-13] MEDS: PROPOFOL 1000 MG/100 ML IV PRN (03:13)
[2017-11-13 03:31] LABS: HEMATOCRIT 28.9 % (42-54); MEAN CORPUSCULAR HEMOGLOBIN 30.5 pg (27.0-33.0); MEAN CORPUSCULAR HGB CONC 34.1 g/dL (32.0-36.0); MEAN CORPUSCULAR VOLUME 89.5 fL (79-99); PLATELET COUNT (AUTO) 83 K/uL (130-400); RED BLOOD CELL COUNT(AUTO) 3.22 MIL/uL (4.50-6.20); RED CELL DISTRIBUTION WIDTH 16.2 % (11.0-15.5); WHITE BLOOD COUNT (AUTO) 12.1 K/uL (4.8-10.8)
[2017-11-13 03:47] LABS: CREATININE 3.3 mg/dL (0.5-1.5); MAGNESIUM 1.9 mg/dL (1.80-2.40); PHOSPHORUS 3.6 mg/dL (2.5-4.9); POTASSIUM 3.4 mmol/L (3.5-5.1)
[2017-11-13 03:57] LABS: LYMPHOCYTES % (MANUAL) 11 % (22-44); MAN.DIFF COMMENT-IMPRESSION MANUAL DIFFERENTIAL; MONOCYTES % (MANUAL) 5 % (2-9); PLATELET MORPHOLOGY COMMENT PLT CLUMPS PRESENT; SEGMENTED NEUTROPHILS % 84 % (40-70)
[2017-11-13] MEDS: ARTIFICAL TEARS SOL 15 ML OU SCH ×3 (05:50→17:45)
[2017-11-13] MEDS: INSULIN HUMULIN R 100 UNIT/ML 3ML SQ SCH ×3 (06:01→18:00)
[2017-11-13] MEDS: WATER FOR INJECTION,STERILE 5 ML VIAL INJ SCH (07:42)
[2017-11-13] MEDS: DOXYCYCLINE 100MG+NS 250ML 250 ML IV SCH ×2 (08:24→21:24)
[2017-11-13] MEDS: FAMOTIDINE 20MG TAB 20 MG TAB PO SCH (08:24)
[2017-11-13] MEDS: TAMSULOSIN HCL 0.4 MG CAP.ER.24H PO SCH (08:24)
[2017-11-13] MEDS ORDERED: RACEPINEPHRINE HCL 2.25% 0.5 ML NEB SOLN ONE (13:20)
[2017-11-13 16:01] LABS: ABG BASE EXCESS 1.1 mmol/L (-2.0-3.0); ABG HCO3 29.3 mmol/L (21.0-28.0); ABG OXYGEN SATURATION 98.1 % (95.0-99.0); ABG PCO2 62 mmHg (35-48)
[2017-11-13] MEDS ORDERED: MORPHINE SULFATE 2 MG/ML 1ML SYG ONE (17:43)
[2017-11-13] MEDS: CEFEPIME HCL 1 GM VIAL IVP SCH (17:45)
[2017-11-13] MEDS ORDERED: MORPHINE SULFATE 2 MG/ML 1ML SYG IVP PRN (17:45)
[2017-11-13] MEDS: RACEPINEPHRINE HCL 2.25% 0.5 ML NEB SOLN NEB SCH (18:54)
[2017-11-14] MEDS: INSULIN DETEMIR 10ML 100 UNIT/ML 10ML SQ SCH (00:02)
[2017-11-14] MEDS: INSULIN HUMULIN R 100 UNIT/ML 3ML SQ SCH ×4 (00:03→18:00)
[2017-11-14] MEDS: RACEPINEPHRINE HCL 2.25% 0.5 ML NEB SOLN NEB SCH ×4 (00:18→17:42)
[2017-11-14] MEDS: ARTIFICAL TEARS SOL 15 ML OU SCH ×4 (00:18→23:04)
[2017-11-14] MEDS: IPRATROPIUM/ALBUTEROL SULFATE 3 ML SOLUTION IH SCH ×6 (02:51→21:48)
[2017-11-14 03:48] VITALS: BP 134/67
[2017-11-14 04:35] LABS: HEMATOCRIT 29.7 % (42-54); MEAN CORPUSCULAR HEMOGLOBIN 29.1 pg (27.0-33.0); MEAN CORPUSCULAR HGB CONC 32.5 g/dL (32.0-36.0); MEAN CORPUSCULAR VOLUME 89.5 fL (79-99); NUCLEATED RED BLOOD CELLS 0.1 % (0.0-0.19); PLATELET COUNT (AUTO) 70 K/uL (130-400); RED BLOOD CELL COUNT(AUTO) 3.32 MIL/uL (4.50-6.20); RED CELL DISTRIBUTION WIDTH 16.2 % (11.0-15.5); WHITE BLOOD COUNT (AUTO) 15.7 K/uL (4.8-10.8)
[2017-11-14 04:48] LABS: CREATININE 5.3 mg/dL (0.5-1.5); MAGNESIUM 2.4 mg/dL (1.80-2.40); PHOSPHORUS 10.1 mg/dL (2.5-4.9); POTASSIUM 4.6 mmol/L (3.5-5.1)
[2017-11-14 05:01] LABS: EOSINOPHILS % (MANUAL) 1 % (1-6); LYMPHOCYTES % (MANUAL) 7 % (22-44); METAMYELOCYTES % 1 % (0-0); MONOCYTES % (MANUAL) 4 % (2-9); SEGMENTED NEUTROPHILS % 87 % (40-70)
[2017-11-14 05:02] LABS: MAN.DIFF COMMENT-IMPRESSION MANUAL DIFFERENTIAL; PLATELET MORPHOLOGY COMMENT PLT CLUMPS PRESENT
[2017-11-14] MEDS: DEXAMETHASONE SOD PHOSPHATE 4 MG/ML 1ML VIAL IVP SCH ×3 (05:16→17:51)
[2017-11-14 07:00] VITALS: BP 134/74
[2017-11-14] MEDS: WATER FOR INJECTION,STERILE 5 ML VIAL INJ SCH ×2 (07:42→22:17)
[2017-11-14] MEDS: DOXYCYCLINE 100MG+NS 250ML 250 ML IV SCH ×2 (08:45→22:16)
[2017-11-14] MEDS: FAMOTIDINE 20MG TAB 20 MG TAB PO SCH (09:00)
[2017-11-14] MEDS: TAMSULOSIN HCL 0.4 MG CAP.ER.24H PO SCH (09:00)
[2017-11-14 11:00] VITALS: BP 122/56
[2017-11-14 16:00] VITALS: BP 130/62
[2017-11-14 19:41] VITALS: BP 126/84
[2017-11-14] MEDS: CEFEPIME HCL 1 GM VIAL IVP SCH (22:16)
[2017-11-14 23:43] VITALS: BP 113/66
[2017-11-15] MEDS: INSULIN HUMULIN R 100 UNIT/ML 3ML SQ SCH ×5 (01:09→23:54)
[2017-11-15] MEDS: INSULIN DETEMIR 10ML 100 UNIT/ML 10ML SQ SCH ×2 (01:12→21:18)
[2017-11-15] MEDS: RACEPINEPHRINE HCL 2.25% 0.5 ML NEB SOLN NEB SCH ×4 (01:23→20:08)
[2017-11-15] MEDS: IPRATROPIUM/ALBUTEROL SULFATE 3 ML SOLUTION IH SCH ×6 (01:31→21:44)
[2017-11-15] MEDS: DEXAMETHASONE SOD PHOSPHATE 4 MG/ML 1ML VIAL IVP SCH ×3 (01:39→17:57)
[2017-11-15 03:55] VITALS: BP 103/66
[2017-11-15] MEDS: ARTIFICAL TEARS SOL 15 ML OU SCH ×3 (06:30→23:58)
[2017-11-15 07:00] VITALS: BP 136/67
[2017-11-15] MEDS: TAMSULOSIN HCL 0.4 MG CAP.ER.24H PO SCH ×2 (08:42→08:46)
[2017-11-15] MEDS: FAMOTIDINE 20MG TAB 20 MG TAB PO SCH ×2 (08:42→08:46)
[2017-11-15 11:00] VITALS: BP 138/73
[2017-11-15] MEDS: DOXYCYCLINE 100MG+NS 250ML 250 ML IV SCH ×2 (11:08→21:17)
[2017-11-15 16:00] VITALS: BP 131/75
[2017-11-15 19:37] VITALS: BP 156/82
[2017-11-15] MEDS: METOCLOPRAMIDE 10 MG/2 ML VIAL IVP SCH (21:17)
[2017-11-15 23:06] VITALS: BP 130/52
[2017-11-15] MEDS: ONDANSETRON HCL 4 MG/2 ML VIAL IVP PRN (23:10)
[2017-11-16] MEDS: RACEPINEPHRINE HCL 2.25% 0.5 ML NEB SOLN NEB SCH ×4 (01:23→21:00)
[2017-11-16] MEDS: IPRATROPIUM/ALBUTEROL SULFATE 3 ML SOLUTION IH SCH ×6 (01:24→22:00)
[2017-11-16] MEDS: DEXAMETHASONE SOD PHOSPHATE 4 MG/ML 1ML VIAL IVP SCH ×3 (01:58→16:49)
[2017-11-16 04:26] LABS: CREATININE 6.2 mg/dL (0.5-1.5); MAGNESIUM 2.6 mg/dL (1.80-2.40); PHOSPHORUS 10.4 mg/dL (2.5-4.9); POTASSIUM 4.9 mmol/L (3.5-5.1)
[2017-11-16 04:37] VITALS: BP 149/74
[2017-11-16 04:46] LABS: HEMATOCRIT 27.5 % (42-54); MEAN CORPUSCULAR HEMOGLOBIN 29.6 pg (27.0-33.0); MEAN CORPUSCULAR HGB CONC 32.6 g/dL (32.0-36.0); MEAN CORPUSCULAR VOLUME 90.7 fL (79-99); RED BLOOD CELL COUNT(AUTO) 3.03 MIL/uL (4.50-6.20); RED CELL DISTRIBUTION WIDTH 15.7 % (11.0-15.5); WHITE BLOOD COUNT (AUTO) 11.2 K/uL (4.8-10.8)
[2017-11-16 05:22] LABS: PLATELET COUNT (AUTO) 84 K/uL (130-400)
[2017-11-16 05:24] LABS: BAND NEUTROPHILS % (MANUAL) 3 % (0-2); LYMPHOCYTES % (MANUAL) 9 % (22-44); MONOCYTES % (MANUAL) 6 % (2-9); SEGMENTED NEUTROPHILS % 82 % (40-70)
[2017-11-16 05:25] LABS: MAN.DIFF COMMENT-IMPRESSION MANUAL DIFFERENTIAL
[2017-11-16] MEDS: INSULIN HUMULIN R 100 UNIT/ML 3ML SQ SCH ×3 (05:44→16:54)
[2017-11-16] MEDS: ARTIFICAL TEARS SOL 15 ML OU SCH ×2 (05:45→12:24)
[2017-11-16 07:38] VITALS: BP 161/73
[2017-11-16] MEDS: WATER FOR INJECTION,STERILE 5 ML VIAL INJ SCH (07:42)
[2017-11-16] MEDS: DOXYCYCLINE 100MG+NS 250ML 250 ML IV SCH ×2 (08:29→23:38)
[2017-11-16] MEDS: TAMSULOSIN HCL 0.4 MG CAP.ER.24H PO SCH (08:30)
[2017-11-16] MEDS: METOCLOPRAMIDE 10 MG/2 ML VIAL IVP SCH ×2 (08:30→20:34)
[2017-11-16] MEDS: FAMOTIDINE 20MG TAB 20 MG TAB PO SCH (08:30)
[2017-11-16 11:08] VITALS: BP 167/75
[2017-11-16 16:12] VITALS: BP 148/80
[2017-11-16 20:05] VITALS: BP 153/83
[2017-11-16] MEDS: INSULIN DETEMIR 10ML 100 UNIT/ML 10ML SQ SCH (23:40)
[2017-11-16] MEDS: ONDANSETRON HCL 4 MG/2 ML VIAL IVP PRN (23:54)
[2017-11-17] VITALS (12 sets, daily range): BP systolic 79–176; BP diastolic 40–87
[2017-11-17] MEDS: IPRATROPIUM/ALBUTEROL SULFATE 3 ML SOLUTION IH SCH ×6 (02:14→21:59)
[2017-11-17] MEDS: RACEPINEPHRINE HCL 2.25% 0.5 ML NEB SOLN NEB SCH ×2 (02:14→06:38)
[2017-11-17] MEDS: DEXAMETHASONE SOD PHOSPHATE 4 MG/ML 1ML VIAL IVP SCH ×3 (03:53→18:26)
[2017-11-17 04:15] LABS: HEMATOCRIT 28.5 % (42-54); MEAN CORPUSCULAR HGB CONC 33.4 g/dL (32.0-36.0); MEAN CORPUSCULAR VOLUME 89.7 fL (79-99); PLATELET COUNT (AUTO) 56 K/uL (130-400); RED BLOOD CELL COUNT(AUTO) 3.18 MIL/uL (4.50-6.20); RED CELL DISTRIBUTION WIDTH 15.8 % (11.0-15.5); WHITE BLOOD COUNT (AUTO) 11.5 K/uL (4.8-10.8)
[2017-11-17 04:19] LABS: PARTIAL THROMBOPLASTIN TIME 29.4 SEC (26.3-35.5); PROTHROMBIN TIME 10.5 SEC (9.6-11.6)
[2017-11-17 04:24] LABS: CREATININE 7.4 mg/dL (0.5-1.5); PHOSPHORUS 10.6 mg/dL (2.5-4.9); POTASSIUM 4.6 mmol/L (3.5-5.1)
[2017-11-17 04:58] LABS: BAND NEUTROPHILS % (MANUAL) 7 % (0-2); EOSINOPHILS % (MANUAL) 1 % (1-6); LYMPHOCYTES % (MANUAL) 14 % (22-44); MAN.DIFF COMMENT-IMPRESSION MANUAL DIFFERENTIAL; MONOCYTES % (MANUAL) 5 % (2-9); SEGMENTED NEUTROPHILS % 73 % (40-70)
[2017-11-17] MEDS: INSULIN HUMULIN R 100 UNIT/ML 3ML SQ SCH ×5 (06:00→21:00)
[2017-11-17] MEDS: WATER FOR INJECTION,STERILE 5 ML VIAL INJ SCH (07:42)
[2017-11-17] MEDS: ONDANSETRON HCL 4 MG/2 ML VIAL IVP PRN (08:45)
[2017-11-17] MEDS ORDERED: SODIUM BICARB 50MEQ 50ML VIAL ONE (09:39)
[2017-11-17] MEDS ORDERED: HEPARIN SODIUM 1000UNIT/ML 10ML VIAL ONE (09:39)
[2017-11-17] MEDS ORDERED: LIDOCAINE HCL 2% 20ML ONE (09:40)
[2017-11-17] MEDS ORDERED: RACEPINEPHRINE HCL 2.25% 0.5 ML NEB SOLN NEB PRN (09:45)
[2017-11-17] MEDS ORDERED: ONDANSETRON HCL 4 MG/2 ML VIAL ONE (11:40)
[2017-11-17] MEDS: METOCLOPRAMIDE 10 MG/2 ML VIAL IVP SCH ×2 (11:53→22:55)
[2017-11-17] MEDS: ARTIFICAL TEARS SOL 15 ML OU SCH ×2 (11:53→18:26)
[2017-11-17] MEDS: TAMSULOSIN HCL 0.4 MG CAP.ER.24H PO SCH (11:53)
[2017-11-17] MEDS: FAMOTIDINE 20MG TAB 20 MG TAB PO SCH (11:54)
[2017-11-17] MEDS: LISINOPRIL 20 MG TABLET PO SCH (11:54)
[2017-11-17] MEDS ORDERED: HEPARIN SODIUM 5000UNIT/ML 1ML VIAL IJ PRN (20:45)
[2017-11-17] MEDS: INSULIN DETEMIR 10ML 100 UNIT/ML 10ML SQ SCH (21:00)
[2017-11-18] MEDS: ARTIFICAL TEARS SOL 15 ML OU SCH ×3 (00:30→18:30)
[2017-11-18] MEDS: IPRATROPIUM/ALBUTEROL SULFATE 3 ML SOLUTION IH SCH ×6 (01:42→22:05)
[2017-11-18] MEDS: DEXAMETHASONE SOD PHOSPHATE 4 MG/ML 1ML VIAL IVP SCH (02:44)
[2017-11-18 04:00] VITALS: BP 179/96
[2017-11-18 04:14] LABS: BASOPHILS % (AUTO) 0.5 % (0.0-5.0); EOSINOPHILS % (AUTO) 1.4 % (0.0-8.0); HEMATOCRIT 27.6 % (42-54); LYMPHOCYTES % (AUTO) 12.4 % (21.0-51.0); MEAN CORPUSCULAR HEMOGLOBIN 30.1 pg (27.0-33.0); MEAN CORPUSCULAR HGB CONC 33.7 g/dL (32.0-36.0); MEAN CORPUSCULAR VOLUME 89.2 fL (79-99); MONOCYTES % (AUTO) 11.1 % (3.0-13.0); NEUTROPHILS % (AUTO) 74.6 % (40.0-77.0); PLATELET COUNT (AUTO) 25 K/uL (130-400); RED CELL DISTRIBUTION WIDTH 15.6 % (11.0-15.5); WHITE BLOOD COUNT (AUTO) 7.8 K/uL (4.8-10.8)
[2017-11-18 04:33] LABS: ALBUMIN 2.4 g/dL (3.5-5.0); BILIRUBIN,TOTAL 0.6 mg/dL (0.2-1.0); CREATININE 4.1 mg/dL (0.5-1.5); POTASSIUM 3.9 mmol/L (3.5-5.1); TOTAL PROTEIN, SERUM 6.5 g/dL (6.0-8.3)
[2017-11-18] MEDS: INSULIN HUMULIN R 100 UNIT/ML 3ML SQ SCH ×4 (06:21→21:00)
[2017-11-18 08:00] VITALS: BP 146/79
[2017-11-18] MEDS: METOCLOPRAMIDE 10 MG/2 ML VIAL IVP SCH ×2 (08:24→21:00)
[2017-11-18] MEDS: TAMSULOSIN HCL 0.4 MG CAP.ER.24H PO SCH (08:25)
[2017-11-18] MEDS: FAMOTIDINE 20MG TAB 20 MG TAB PO SCH (08:25)
[2017-11-18] MEDS: LISINOPRIL 20 MG TABLET PO SCH (08:25)
[2017-11-18 12:07] VITALS: BP 103/61
[2017-11-18] MEDS: DEXAMETHASONE 0.5 MG TAB PO SCH ×2 (14:57→21:00)
[2017-11-18 16:00] VITALS: BP 102/56
[2017-11-18 20:00] VITALS: BP 155/73
[2017-11-18] MEDS: INSULIN GLARGINE 100 UNITS/ML 10 ML VIAL SQ SCH (22:40)
[2017-11-19] VITALS: BP 159/79
[2017-11-19] MEDS: ARTIFICAL TEARS SOL 15 ML OU SCH ×4 (00:30→17:15)
[2017-11-19] MEDS: IPRATROPIUM/ALBUTEROL SULFATE 3 ML SOLUTION IH SCH ×5 (01:48→19:04)
[2017-11-19 04:00] VITALS: BP 151/97
[2017-11-19 04:35] LABS: HEMATOCRIT 26.5 % (42-54); MEAN CORPUSCULAR HEMOGLOBIN 30.4 pg (27.0-33.0); MEAN CORPUSCULAR HGB CONC 33.8 g/dL (32.0-36.0); PLATELET COUNT (AUTO) 50 K/uL (130-400); RED BLOOD CELL COUNT(AUTO) 2.94 MIL/uL (4.50-6.20); RED CELL DISTRIBUTION WIDTH 15.9 % (11.0-15.5); WHITE BLOOD COUNT (AUTO) 7.3 K/uL (4.8-10.8)
[2017-11-19 04:46] LABS: CREATININE 5.7 mg/dL (0.5-1.5); POTASSIUM 4.4 mmol/L (3.5-5.1)
[2017-11-19] MEDS: INSULIN HUMULIN R 100 UNIT/ML 3ML SQ SCH ×4 (06:09→20:19)
[2017-11-19 07:30] VITALS: BP 141/69
[2017-11-19] MEDS: DEXAMETHASONE 0.5 MG TAB PO SCH (07:48)
[2017-11-19] MEDS: FAMOTIDINE 20MG TAB 20 MG TAB PO SCH (09:15)
[2017-11-19] MEDS: TAMSULOSIN HCL 0.4 MG CAP.ER.24H PO SCH (09:15)
[2017-11-19] MEDS: METOCLOPRAMIDE 10 MG/2 ML VIAL IVP SCH ×2 (09:15→20:29)
[2017-11-19] MEDS: LISINOPRIL 20 MG TABLET PO SCH (09:15)
[2017-11-19 11:00] VITALS: BP 122/64
[2017-11-19 16:00] VITALS: BP 131/71
[2017-11-19] MEDS: INSULIN GLARGINE 100 UNITS/ML 10 ML VIAL SQ SCH (20:34)
[2017-11-19 20:54] VITALS: BP 135/61
== END 2017-11-19 21:20 | DRG 870 ==
LOC: EDH 01:29 → OBSVTOIN 06:45 → EDHIP 06:45 → 4CH 09:25 → 2BH 18:02 → 2DH 11-13 19:40 → 3AH 11-16 17:29
PROVIDERS: ADMIT Family Medicine; ATTEND Family Medicine
PROC: 5A1D70Z Performance of Urinary Filtration, Intermittent, Less than 6 Hours Per Day (ICD-10-PCS; 2017-11-04)
PROC: 5A1955Z Respiratory Ventilation, Greater than 96 Consecutive Hours (ICD-10-PCS; principal; 2017-11-08)
PROC: 0BH17EZ Insertion of Endotracheal Airway into Trachea, Via Natural or Artificial Opening (ICD-10-PCS; 2017-11-08)
PROC: 05H533Z Insertion of Infusion Device into Right Subclavian Vein, Percutaneous Approach (ICD-10-PCS; 2017-11-08)
PROC: 02H633Z Insertion of Infusion Device into Right Atrium, Percutaneous Approach (ICD-10-PCS; 2017-11-08)
PROC: 02HV33Z Insertion of Infusion Device into Superior Vena Cava, Percutaneous Approach (ICD-10-PCS; 2017-11-08)
DX: A41.9 Sepsis, unspecified organism (principal); J96.01 Acute respiratory failure with hypoxia; I46.9 Cardiac arrest, cause unspecified; N17.9 Acute kidney failure, unspecified; I13.0 Hypertensive heart and chronic kidney disease with heart failure and stage 1 through stage 4 chronic kidney disease, or unspecified chronic kidney disease; J18.9 Pneumonia, unspecified organism; N18.6 End stage renal disease; I50.9 Heart failure, unspecified; N12 Tubulo-interstitial nephritis, not specified as acute or chronic; D64.9 Anemia, unspecified; Z99.2 Dependence on renal dialysis
CPT/HCPCS: 31500; 31720; 36415; 36430; 36558; 36600; 36800; 71010; 71045; 74000; 74176; 77001; 80048; 80053; 80061; 81001; 82040; 82150; 82550; 82728; 82803; 82948; 83036; 83540; 83550; 83605; 83690; 83735; 84100; 84132; 84443; 84484; 84520; 85007; 85025; 85027; 85610; 85730; 86078; 86701; 86704; 86706; 86850; 86900; 86901; 86922; 87040; 87071; 87088; 87186; 87340; 87390; 87520; 87804; 90935; 92610; 92950; 93005; 93306; 93970; 94002; 94003; 94640; 94660; 94664; 97039; A4218; A4344; C1750; C1751; C1752; J0171; J0330; J0360; J0692; J0696; J0885; J1100; J1200; J1644; J1756; J1815; J1940; J2405; J2704; J2765; J2997; J3010; J3480; J3490; J7030; J8540; P9016; P9046

== ENCOUNTER → 2017-12-14 | Outpatient (CLI) | payer OTHER ==
[~2017-12-14] MED LIST changes: +AMLO10TA2 PO; +FOLI1TAB15 PO; +GABA-529 PO; +INS7030 SQ; -LOSA100T29 PO; +OXYB5TAB PO; +OXYB5TAB10 PO
== END | disposition home or self-care (01) ==
LOC: RAH 12-13 12:02
PROVIDERS: ATTEND Family Medicine
DX: R13.10 Dysphagia, unspecified (principal)
CPT/HCPCS: 74230; 92611

== ENCOUNTER → 2018-01-25 | Outpatient (CLI) | payer OTHER | END | disposition home or self-care (01) | LOC: OIH 08:26 | PROVIDERS: ATTEND Family Medicine | DX: M19.011 Primary osteoarthritis, right shoulder (principal) | CPT/HCPCS: 73030 ==

== ENCOUNTER 2018-03-15 23:15 | Inpatient (IN) | payer OTHER ==
[~2018-03-15] VITALS: Ht 152.4 cm; Wt 70.0 kg
[~2018-03-15 23:15] MED LIST changes: -GABA-529 PO; -OXYB5TAB10 PO
[2018-03-16 00:27] LABS: BASOPHILS % (AUTO) 0.7 % (0.0-5.0); EOSINOPHILS % (AUTO) 0.1 % (0.0-8.0); HEMATOCRIT 32.8 % (42-54); LYMPHOCYTES % (AUTO) 10.6 % (21.0-51.0); MEAN CORPUSCULAR HEMOGLOBIN 31.7 pg (27.0-33.0); MEAN CORPUSCULAR HGB CONC 32.9 g/dL (32.0-36.0); MEAN CORPUSCULAR VOLUME 96.2 fL (79-99); MONOCYTES % (AUTO) 9.9 % (3.0-13.0); NEUTROPHILS % (AUTO) 78.7 % (40.0-77.0); NUCLEATED RED BLOOD CELLS 0.1 % (0.0-0.19); RED BLOOD CELL COUNT(AUTO) 3.41 MIL/uL (4.50-6.20); RED CELL DISTRIBUTION WIDTH 16.9 % (11.0-15.5); WHITE BLOOD COUNT (AUTO) 9.4 K/uL (4.8-10.8)
[2018-03-16 01:02] LABS: PLATELET COUNT (AUTO) 161 K/uL (130-400)
[2018-03-16 01:03] LABS: ALBUMIN 2.9 g/dL (3.5-5.0); BILIRUBIN,TOTAL 1.7 mg/dL (0.2-1.0); CREATININE 5.8 mg/dL (0.5-1.5); TOTAL PROTEIN, SERUM 7.4 g/dL (6.0-8.3)
[2018-03-16 01:11] LABS: POTASSIUM 6.5 mmol/L (3.5-5.1)
[2018-03-16] MEDS ORDERED: ALBUTEROL SULFATE 0.083% 2.5 MG/3 ML INH IH ONE (01:45)
[2018-03-16] MEDS ORDERED: SODIUM POLYSTYRENE SULFONATE 15 GM/60 ML ML ONE (01:54)
[2018-03-16] MEDS ORDERED: CALCIUM GLUCONATE 1 GM/10 ML VIAL IV ONE (01:54)
[2018-03-16] MEDS ORDERED: SODIUM CHLORIDE 0.9% 1000ML 1,000 ML IV ONE (01:54)
[2018-03-16] MEDS ORDERED: SODIUM CHLORIDE 0.9% 50 ML IV ONE (01:55)
[2018-03-16] MEDS ORDERED: INSULIN HUMULIN R 100 UNIT/ML 3ML ONE (01:56)
[2018-03-16] MEDS ORDERED: DEXTROSE 50%-WATER 50 ML DISP.SYRIN IV ONE (01:57)
[2018-03-16 03:27] LABS: AMYLASE 22 U/L (25-115); LIPASE 129 U/L (114-286)
[2018-03-16 05:50] VITALS: BP 91/47
[2018-03-16] MEDS ORDERED: POTASSIUM CHLORIDE 20MEQ/100ML 100 ML IV PRN (06:00)
[2018-03-16] MEDS ORDERED: POTASSIUM CHLORIDE 10% ELIXIR 20 MEQ/15 ML UDCUP PO PRN (06:00)
[2018-03-16] MEDS ORDERED: LACTULOSE 20 GM/30 ML UDCUP PO PRN (06:00)
[2018-03-16] MEDS ORDERED: ACETAMINOPHEN 325 MG TAB PO PRN (06:00)
[2018-03-16] MEDS ORDERED: GUAIFENESIN-DM 200/20 MG 10 ML PO PRN (06:00)
[2018-03-16] MEDS ORDERED: MAG HYDROX/AL HYDROX/SIMETH ES 30 ML SUSP UDCUP PO PRN (06:00)
[2018-03-16] MEDS ORDERED: POTASSIUM CHLORIDE 20 MEQ ERTAB PO PRN (06:00)
[2018-03-16] MEDS ORDERED: NITROGLYCERIN 0.4 MG SL TAB SL PRN (06:00)
[2018-03-16] MEDS ORDERED: ZOLPIDEM TARTRATE 5 MG TAB PO PRN (06:00)
[2018-03-16] MEDS ORDERED: GUAIFENESIN SUGAR-FREE 100 MG/5 ML UDCUP PO PRN (06:00)
[2018-03-16] MEDS ORDERED: DIPHENHYDRAMINE HCL 25 MG CAPSULE PO PRN (06:00)
[2018-03-16] MEDS ORDERED: DEXTROSE 50%-WATER 50 ML DISP.SYRIN IV PRN (06:00)
[2018-03-16] MEDS ORDERED: GLUCAGON 1MG KIT 1 MG ML IM PRN (06:00)
[2018-03-16] MEDS ORDERED: LIDOCAINE HCL-MPF 1% 2ML VIAL IJ PRN (06:00)
[2018-03-16] MEDS ORDERED: CLONIDINE HCL 0.1 MG TABLET PO PRN (06:00)
[2018-03-16] MEDS ORDERED: DiphenhydrAMINE HCL 50 MG/ML VIAL IVP PRN (06:00)
[2018-03-16] MEDS: INSULIN R PO SS1 SQ SCH ×4 (06:51→21:00)
[2018-03-16 07:56] VITALS: BP 96/52
[2018-03-16] MEDS: PANTOPRAZOLE SODIUM 40 MG TABLET.DR PO SCH (09:46)
[2018-03-16] MEDS ORDERED: EPOETIN ALFA 10,000 UNIT/ML VIAL SQ SCH (10:00)
[2018-03-16] MEDS ORDERED: GABA-529 PO (10:11)
[2018-03-16] MEDS ORDERED: OXYB5TAB10 PO (10:11)
[2018-03-16] MEDS: MIDODRINE HCL 5 MG TABLET PO SCH (10:27)
[2018-03-16] MEDS: VANCOMYCIN 1GM+NS 250ML 250 ML IV SCH (11:39)
[2018-03-16 11:54] VITALS: BP 102/50
[2018-03-16] MEDS ORDERED: SODIUM BICARB 8.4% 50ML SYRINGE IVP ONE (12:00)
[2018-03-16] MEDS ORDERED: AMIODARONE HCL 50 MG/ML 3 ML VIAL IV ONE (12:00)
[2018-03-16] MEDS ORDERED: ETOMIDATE 2 MG/ML 10 ML VIAL IVP ONE (12:00)
[2018-03-16] MEDS ORDERED: CALCIUM CHLORIDE 100 MG/ML 10 ML SYG IVP ONE (12:00)
[2018-03-16] MEDS ORDERED: EPINEPHRINE 0.1 MG/ML 10 ML SYG IVP ONE (12:00)
[2018-03-16] MEDS ORDERED: ROCURONIUM BROMIDE 10MG/1ML 5ML VL IV ONE (12:00)
[2018-03-16] MEDS ORDERED: MAGNESIUM SULFATE 1 GM/2 ML VIAL IM ONE (12:00)
[2018-03-16] MEDS ORDERED: 0.9% SODIUM CHLORIDE 250 ML IV BAG IV PRN (13:30)
[2018-03-16] MEDS ORDERED: HEPARIN SODIUM 5000UNIT/ML 1ML VIAL IJ PRN (13:30)
[2018-03-16] MEDS ORDERED: ALBUMIN (HUMAN) 25% 100 ML IV PRN (13:30)
[2018-03-16] MEDS ORDERED: SODIUM CHLORIDE 0.9% 1000ML 1,000 ML IV PRN (13:30)
[2018-03-16 16:21] VITALS: BP 123/57
[2018-03-16] MEDS: ONDANSETRON HCL 4 MG/2 ML VIAL IVP PRN (18:49)
[2018-03-16 21:15] VITALS: BP 100/60
[2018-03-16] MEDS: ACETAMINOPHEN 325 MG TAB PO PRN (23:19)
[2018-03-17] MEDS: MIDODRINE HCL 5 MG TABLET PO SCH ×4 (00:30→22:34)
[2018-03-17 00:41] VITALS: BP 91/57
[2018-03-17 04:23] VITALS: BP 100/52
[2018-03-17 05:48] LABS: HEMATOCRIT 31.3 % (42-54); MEAN CORPUSCULAR HGB CONC 34.6 g/dL (32.0-36.0); MEAN CORPUSCULAR VOLUME 95.5 fL (79-99); NUCLEATED RED BLOOD CELLS 1.9 % (0.0-0.19); PLATELET COUNT (AUTO) 151 K/uL (130-400); RED BLOOD CELL COUNT(AUTO) 3.27 MIL/uL (4.50-6.20); RED CELL DISTRIBUTION WIDTH 16.3 % (11.0-15.5); WHITE BLOOD COUNT (AUTO) 10.3 K/uL (4.8-10.8)
[2018-03-17 05:56] LABS: BAND NEUTROPHILS % (MANUAL) 4 % (0-2); BASOPHILS % (MANUAL) 1 % (0-2); EOSINOPHILS % (MANUAL) 1 % (1-6); LYMPHOCYTES % (MANUAL) 10 % (22-44); MAN.DIFF COMMENT-IMPRESSION MANUAL DIFFERENTIAL; MONOCYTES % (MANUAL) 6 % (2-9); PLATELET MORPHOLOGY COMMENT ADEQUATE; SEGMENTED NEUTROPHILS % 78 % (40-70)
[2018-03-17 06:14] LABS: ALBUMIN 2.7 g/dL (3.5-5.0); BILIRUBIN,TOTAL 1.4 mg/dL (0.2-1.0); CREATININE 5.1 mg/dL (0.5-1.5); PHOSPHORUS 7.1 mg/dL (2.5-4.9); POTASSIUM 4.4 mmol/L (3.5-5.1); TOTAL PROTEIN, SERUM 6.9 g/dL (6.0-8.3)
[2018-03-17] MEDS: INSULIN R PO SS1 SQ SCH ×4 (06:42→21:00)
[2018-03-17 07:30] VITALS: BP 95/48
[2018-03-17] MEDS ORDERED: PANTOPRAZOLE SODIUM 40 MG TABLET.DR PO SCH (09:00)
[2018-03-17] MEDS: PANTOPRAZOLE SODIUM 40 MG TABLET.DR PO SCH (09:03)
[2018-03-17] MEDS: ONDANSETRON HCL 4 MG/2 ML VIAL IVP PRN (09:08)
[2018-03-17] MEDS: VANCOMYCIN 1GM+NS 250ML 250 ML IV SCH (10:00)
[2018-03-17 11:00] VITALS: BP 118/54
[2018-03-17 16:00] VITALS: BP 95/46
[2018-03-17] MEDS ORDERED: MIDODRINE HCL 5 MG TABLET PO SCH (17:30)
[2018-03-17 19:00] VITALS: BP 100/54
[2018-03-17] MEDS: ACETAMINOPHEN 325 MG TAB PO PRN (22:27)
[2018-03-18] MEDS: MIDODRINE HCL 5 MG TABLET PO SCH (00:09)
[2018-03-18 00:14] VITALS: BP 102/60
[2018-03-18 06:33] LABS: BASOPHILS % (AUTO) 0.6 % (0.0-5.0); EOSINOPHILS % (AUTO) 0.1 % (0.0-8.0); LYMPHOCYTES % (AUTO) 15.3 % (21.0-51.0); MEAN CORPUSCULAR HEMOGLOBIN 31.7 pg (27.0-33.0); MEAN CORPUSCULAR HGB CONC 31.2 g/dL (32.0-36.0); MEAN CORPUSCULAR VOLUME 101.7 fL (79-99); MONOCYTES % (AUTO) 15.7 % (3.0-13.0); NEUTROPHILS % (AUTO) 68.3 % (40.0-77.0); NUCLEATED RED BLOOD CELLS 1.7 % (0.0-0.19); PLATELET COUNT (AUTO) 129 K/uL (130-400); RED BLOOD CELL COUNT(AUTO) 3.44 MIL/uL (4.50-6.20); RED CELL DISTRIBUTION WIDTH 17.8 % (11.0-15.5); WHITE BLOOD COUNT (AUTO) 13.5 K/uL (4.8-10.8)
[2018-03-18 06:36] LABS: ALBUMIN 2.6 g/dL (3.5-5.0); BILIRUBIN,TOTAL 2.4 mg/dL (0.2-1.0); CREATININE 6.5 mg/dL (0.5-1.5); TOTAL PROTEIN, SERUM 6.7 g/dL (6.0-8.3)
[2018-03-18 06:39] LABS: POTASSIUM 6.7 mmol/L (3.5-5.1)
[2018-03-18 07:31] LABS: HEPATITIS A ANTIBODY IGM Negative (Negative); HEPATITIS B CORE IGM Negative (Negative); HEPATITIS Bs ANTIGEN SCREEN P Negative (Negative)
== END 2018-03-18 04:38 | disposition expired | DRG 444 ==
LOC: EDH 23:15 → EDHIP 03-16 03:50 → OBSVTOIN 03-16 03:50 → 4BH 03-16 05:35
PROVIDERS: ADMIT Family Medicine; ATTEND Family Medicine
PROC: 5A1D70Z Performance of Urinary Filtration, Intermittent, Less than 6 Hours Per Day (ICD-10-PCS; principal; 2018-03-16)
DX: K81.0 Acute cholecystitis (principal); N18.6 End stage renal disease; I13.2 Hypertensive heart and chronic kidney disease with heart failure and with stage 5 chronic kidney disease, or end stage renal disease; E11.22 Type 2 diabetes mellitus with diabetic chronic kidney disease; E87.5 Hyperkalemia; I50.32 Chronic diastolic (congestive) heart failure; I25.10 Atherosclerotic heart disease of native coronary artery without angina pectoris; E78.00 Pure hypercholesterolemia, unspecified; E78.5 Hyperlipidemia, unspecified; Z86.73 Personal history of transient ischemic attack (TIA), and cerebral infarction without residual deficits; Z99.2 Dependence on renal dialysis
CPT/HCPCS: 31500; 36415; 74176; 76705; 78227; 80053; 80074; 82009; 82150; 82947; 82948; 83690; 84100; 85025; 87040; 90935; 92950; 93005; 94640; A9537; C9113; J0171; J0282; J0610; J0885; J1815; J2405; J3370; J3475; J3490; J7030; J7070